=== PATIENT | male | born 1940 | race Caucasian/White ===

== ENCOUNTER 2017-06-02 09:15 | Outpatient (RCR) | payer OTHER ==
[~2017-06-02 09:15] MED LIST: AMLODIPINE BESYL5 MG ORAL; FUROSEMIDE40 MG ORAL; IBUPROFEN200 MG ORAL; ISOSORBIDE MONO30 M1 PO; LEVOXYL25 MCG ORAL; METOPROLOL TAR100 MG ORAL; PRILOSEC20 MG ORAL; SIMVASTATIN20 MG ORAL; TAMSULOSIN HCL0.4 MG ORAL; TYLENOL650 MG/20. ORAL; WARFARIN SODIU2.5 MG ORAL; WARFARIN SODIUM5 MG ORAL; ZESTRIL20 MG ORAL
== END 2017-06-03 | disposition home or self-care (01) ==
LOC: PTY 09:15
PROVIDERS: ATTEND Internal Medicine
DX: M25.562 Pain in left knee (principal); G89.29 Other chronic pain; M25.512 Pain in left shoulder; M54.5 Low back pain

== ENCOUNTER 2017-08-14 08:43 | Outpatient (RCR) | payer OTHER | END 2017-09-03 | disposition home or self-care (01) | LOC: PTY 08:43 | PROVIDERS: ATTEND Internal Medicine | DX: M25.562 Pain in left knee (principal); G89.29 Other chronic pain ==